=== PATIENT | male | born 1980 | race Caucasian/White ===

== ENCOUNTER 2024-02-12 22:34 | Emergency (ER) | payer OTHER, SELFPAY ==
--- NOTE | ~2024-02-12 | XR_ITS ---
Portable chest x-ray Comparison: None Clinical History: Fever, palpitations Findings: There is possible minimal central congestive change. No consolidation or pleural effusion. Cardiomediastinal silhouette is mildly prominent, possibly due to AP technique. Bones and soft tiss ues are unremarkable. Impression: Possible minimal central congestive change. Reviewed, dictated and finalized at location . Impression: Possible minimal central congestive change.
--- NOTE | ~2024-02-12 | CT_ITS ---
Clinical Indication: Shortness of breath CT Scan of the Chest with Contrast: Technique: Contiguous sections were acquired throughout the chest after intravenous administration of 100 cc of Omnipaque 350. Dose reduction technique was used on this scan by utilizing automated expos ure control and iterative reconstruction technique. The dose-length product (DLP) was 1261.56 mGy-cm. Findings: There is no evidence of any significant mediastinal, hilar or axillary lymphadenopathy. No definite l arge central pulmonary embolus seen, but evaluation is suboptimal due to timing of the contrast bolus . There is no evidence of aortic dissection or aneurysm. There is no evidence of pleural or pericardial effusion. 8 mm fissural nodule noted along the right minor fissure (axial image 50). Left lung clear. Images through the upper abdomen reveal no abnormalities. Impression: Limited evaluation for pulmonary embolus due to timing of the contrast bolus. No definite large centr al pulmonary embolus seen. 8 mm fissural nodule along right minor fissure. This is most likely benign. Consider follow-up exam i n 6 months. Reviewed, dictated and finalized at location . Impression: Limited evaluation for pulmonary embolus due to timing of the contrast bolus. N o definite large central pulmonary embolus seen. 8 mm fissural nodule along right minor fissure. This is most likely benign. Con candle cutter follow-up exam in 6 months.
--- NOTE | 2024-02-12 22:42 | ECG_ITS ---
Test Date: 2024-02-12 22:46:10 Measurements Intervals [place] Rate: 103 P: 11 CA: 164 QRS: 23 QRSD: 103 T: 57 QT: 328 QTc: 430 Interpretive Statements SINUS TACHYCARDIA WITH OCCASIONAL VENTRICULAR PREMATURE COMPLEXES NONSPECIFIC ST AND T-WAVE ABNORMALITY No previous ECG available for comparison Electronically Signed On 02-13-2024 09:41:48 CDT by Denisa Thompson M.D.
[2024-02-12 22:44] VITALS: BP 170/93; PULSE 102; RESP 14; TEMP 36.4; O2SAT 98
[2024-02-13 00:26] VITALS: BP 136/86; PULSE 95; RESP 20; TEMP 36.8; O2SAT 99
[2024-02-13 00:55] LABS: Basophils Percent Auto 0.4 % (0.2-1.2); Hematocrit 47.8 % (42.0-52.0); Hemoglobin 16.6 g/dL (14.0-18.0); Immature Granulocyte Absolute 0.11 K/mm3 (0.00-0.031); Immature Granulocyte Percent A 1.6 % (0-0.5); Lymphocytes Absolute Auto 0.97 K/mm3 (0.9-3.2); Lymphocytes Percent Auto 14.1 % (18.3-44.2); Mean Corpuscular HGB Conc 34.7 g/dl (32-36); Mean Corpuscular Hemoglobin 28.7 pg (26-34); Mean Corpuscular Volume 82.6 fl (80-100); Mean Platelet Volume 9.9 fl (7.4-10.4); Monocytes Absolute Auto 0.4 K/mm3 (0.1-0.6); Neutrophils Absolute Auto 5.3 K/mm3 (1.3-6.7); Neutrophils Percent Auto 77.9 % (45.5-73.1); Platelet Count Result 174 k/mm3 (150-375); Red Blood Count 5.79 M/mm3 (4.6-6.20); Red Cell Distribution Width 13.5 % (11.5-14.5); White Blood Count 6.9 K/mm3 (4.5-10.0)
[2024-02-13 01:01] LABS: Chloride 91 mmol/L (98-107)
[2024-02-13 01:09] LABS: Alanine Aminotransferase 58 U/L (6-50); Albumin Level 4.6 g/dL (3.5-5.1); Alkaline Phosphatase 87 U/L (38-126); Anion Gap 15 mmol/L (4-12); Aspartate Amino Transferase 39 U/L (17-59); Bilirubin,Total 1.1 mg/dL (0.2-1.3); Blood Urea Nitrogen 16 mg/dL (9-20); Calcium 9.2 mg/dL (8.4-10.2); Carbon Dioxide 25 mmol/L (22-30); Estimated CRCL calculation 193 ml/min; Estimated Glomerular Filt Rate > 60; Glucose 342 mg/dL (65-110); Potassium 3.9 mmol/L (3.4-5.0); Sodium 131 mmol/L (137-145)
[2024-02-13 01:15] LABS: Troponin I < 0.012 ng/mL (0.000-0.034)
[2024-02-13 01:49] LABS: INR 1.1; Prothrombin Time 14.1 Seconds (11.1-14.7)
[2024-02-13 02:34] VITALS: BP 127/96; PULSE 109; RESP 23; O2SAT 98
[2024-02-13 02:58] VITALS: PULSE 105; RESP 19; TEMP 38.3; O2SAT 97
[2024-02-13] MEDS: ACETAMINOPHEN 500 MG TABLET 1000 MG PO (03:11)
[2024-02-13] MEDS: SODIUM CHLORIDE 0.9% IV 1,000 ML 999 ML IV CONT (03:11)
[2024-02-13 03:12] LABS: Magnesium 1.8 mg/dL (1.6-2.3)
[2024-02-13 03:32] LABS: Add Urine Microscopic? YES; Appearance Urine Clear (Clear); Bacteria Urine None Seen /hpf; Bilirubin Urine Negative (Negative); Blood Urine Negative (Negative); Color Urine Yellow (Yellow); Glucose Urine UA 3+ mg/dL (Negative); Ketones Urine 3+ mg/dL (Negative); Leukocyte Esterase Ur Negative LEU/UL (Negative); Nitrate Urine Negative (Negative); Non Pathogenic Casts 0-2; Protein Urine 2+ mg/dL (Negative); RBC Urine 0-2 /hpf (0-2); Squamous Epithelial Cell Urine None Seen /hpf (Few); Urobilinogen Urine 0.2 mg/dL (<2.0); WBC Urine 0-5 /hpf (0-3)
[2024-02-13 04:04] VITALS: BP 156/92; PULSE 100; RESP 19; TEMP 37; O2SAT 95
[2024-02-13 04:06] LABS: Influenza A QL RT-PCR Negative (Negative); Influenza B QL RT-PCR Negative (Negative); RSV RNA, RT-PCR Negative (Negative); SARS-CoV-2 RNA PCR Negative (Negative)
--- NOTE | 2024-02-13 05:48 | ED_ITS ---
HPI - General Adult General Chief complaint: Arrhythmia/Palpitations Stated complaint: think I am hvaing heart attack Time Seen by Provider: 02/13/24 02:54 History of Present Illness HPI narrative: Patient's [age] old gentleman presents emergency department with chief complaint of palpitations. Patient reports that since afternoon he has felt like his heart is been pounding feels like it is beating strange the patient also reports he feels weak and tired patient states he has felt a little short of breath as well. Related Data Allergies Allergy/AdvReac Type Severity Reaction Status Date / Time No Known Allergies Allergy Verified 02/13/24 02:35 Review of Systems Review of Systems: A 10 system review of systems was completed on the patient and is negative except for what is stated in the HPI. Nursing and ancillary documentation was reviewed. Exam Narrative: GENERAL: Well-appearing, well-nourished, and in no acute distress. HEAD: Normocephalic, atraumatic. EYES: PERRLA and EOMI. ENT: Nares clear, no rhinorrhea or epistaxis. Mucous membranes moist. NECK: Supple. CHEST: Clear to auscultation. No respiratory distress. HEART: Regular rate and rhythm. No murmur heard. Normal peripheral pulses. ABDOMEN: Soft, nontender, nondistended, normal active bowel sounds. EXTREMITIES: Normal range of motion. No edema. SKIN: Warm, dry, no rash. NEURO: No focal deficits. Alert and oriented x3. PSYCH: Normal mood and affect. Course Vital Signs Vital signs: Vital Signs Temperature 36.4 C 02/12/24 22:44 Pulse Rate 102 H 02/12/24 22:44 Respiratory Rate 14 02/12/24 22:44 Blood Pressure 170/93 H 02/12/24 22:44 Pulse Oximetry 98 02/12/24 22:44 Oxygen Delivery Room Air 02/12/24 22:44 Temperature 37.0 C 02/13/24 04:04 Pulse Rate 100 02/13/24 04:04 Respiratory Rate 19 02/13/24 04:04 Blood Pressure 156/92 H 02/13/24 04:04 Pulse Oximetry 95 02/13/24 04:04 Oxygen Delivery Room Air 02/12/24 22:44 Medical Decision Making [facility] Narrative Medical decision making narrative: Differential diagnosis includes pneumonia, palpitations, viral illness, upper respiratory infection, pneumonia, pulmonary embolism Laboratory studies were obtained on the patient showed a normal CBC CMP showed a blood sugar of 342 the patient CO2 was 25 Troponin was negative urinalysis showed ketones and glucose COVID flu and RSV were negative Chest x-ray showed no focal infiltrate CTA chest showed no pulmonary embolism or had an infiltrate. Patient's blood sugar was treated with IV fluids patient will be started on metformin Vital Signs Vital Signs: Vital Signs Temperature 36.4 C 02/12/24 22:44 Pulse Rate 102 H 02/12/24 22:44 Respiratory Rate 14 02/12/24 22:44 Blood Pressure 170/93 H 02/12/24 22:44 Pulse Oximetry 98 02/12/24 22:44 Oxygen Delivery Room Air 02/12/24 22:44 Temperature 37.0 C 02/13/24 04:04 Pulse Rate 100 02/13/24 04:04 Respiratory Rate 19 02/13/24 04:04 Blood Pressure 156/92 H 02/13/24 04:04 Pulse Oximetry 95 02/13/24 04:04 Oxygen Delivery Room Air 02/12/24 22:44 Lab Data 02/13/24 00:44 02/13/24 00:44 Labs: Lab Results 02/13/24 02/13/24 02/13/24 Range/Units 00:44 03:13 03:24 WBC 6.9 (4.5-10.0) K/mm3 RBC 5.79 (4.6-6.20) M/mm3 Hgb 16.6 (14.0-18.0) g/dL Hct 47.8 (42.0-52.0) % MCV 82.6 (80-100) fl MCH 28.7 (26-34) pg MCHC 34.7 (32-36) g/dl RDW 13.5 (11.5-14.5) % Plt Count 174 (150-375) k/mm3 MPV 9.9 (7.4-10.4) fl Immature Gran % (Auto) 1.6 H (0-0.5) % Neut % (Auto) 77.9 H (45.5-73.1) % Lymph % (Auto) 14.1 L (18.3-44.2) % [place] % (Auto) 6.0 (2.6-8.5) % Eos % (Auto) 0.0 (0-4.4) % Baso % (Auto) 0.4 (0.2-1.2) % Lymph # (Auto) 0.97 (0.9-3.2) K/mm3 [place] # (Auto) 0.4 (0.1-0.6) K/mm3 Eos # (Auto) 0.0 (0-0.3) K/mm3 Baso # (Auto) 0.0 (0.0-0.1) K/mm3 Abs Immat Gran (auto) 0.11 H (0.00-0.031) K/mm3 Absolute Neuts (auto) 5.3 (1.3-6.7) K/mm3 Absolute Nucleated RBC 0.000 (0.0-0.012) K/mm3 Nucleated RBC % 0.0 (0.0-0.2) % PT 14.1 (11.1-14.7) Seconds INR 1.1 APTT 26.0 (22.3-36.8) Seconds Sodium 131 L (137-145) mmol/L Potassium 3.9 (3.4-5.0) mmol/L Chloride 91 L (98-107) mmol/L Carbon Dioxide 25 (22-30) mmol/L Anion Gap 15 H (4-12) mmol/L BUN 16 (9-20) mg/dL Creatinine 0.80 (0.7-1.3) mg/dL Estim Creat Clear Calc 193 ml/min Estimated GFR > 60 (59 - ) Glucose 342 H (65-110) mg/dL Calcium 9.2 (8.4-10.2) mg/dL Magnesium 1.8 (1.6-2.3) mg/dL Total Bilirubin 1.1 (0.2-1.3) mg/dL AST 39 (17-59) U/L ALT 58 H (6-50) U/L Alkaline Phosphatase 87 (38-126) U/L Troponin I < 0.012 (0.000-0.034) ng/mL Total Protein 8.0 (6.3-8.2) g/dL Albumin 4.6 (3.5-5.1) g/dL Urine Color Yellow (Yellow) Urine Appearance Clear (Clear) Urine pH 6.0 (5.0-9.0) Ur Specific [place] 1.040 H (1.001-1.035) Urine Protein 2+ H (Negative) mg/dL Urine Glucose (UA) 3+ H (Negative) mg/dL Urine Ketones 3+ H (Negative) mg/dL Ur Blood (Man) Negative (Negative) Urine Nitrate Negative (Negative) Urine Bilirubin Negative (Negative) Urine Urobilinogen 0.2 (<2.0) mg/dL Leukocyte Esterase Rfl Negative (Negative) AG/UL Urine RBC 0-2 (0-2) /hpf Urine WBC 0-5 (0-3) /hpf Ur Squamous Epith Cells None seen (Few) /hpf Urine Bacteria None seen /hpf Urine Casts 0-2 Influenza A (RT-PCR) Negative (Negative) Influenza B (RT-PCR) Negative (Negative) RSV (RT-PCR) Negative (Negative) SARS-CoV-2 RNA (RT-PCR) Negative (Negative) Discharge Plan Discharge Clinical Impression: Viral illness, Heart palpitations, Hyperglycemia Patient Disposition: Home, Self-Care Condition: Stable Instructions: Antibiotic Form, Heart Palpitations (ED), Viral Syndrome (ED), Diabetic Hyperglycemia (ED) Additional Instructions: It is recommended that you start checking her blood sugars at home and keep a daily log of this please follow-up with primary care we will start you on a medication to help bring her blood sugars down. Prescriptions: New metformin 500 mg tablet 500 mg PO BID Qty: 60 1RF Follow-up/Referrals: Christopher Nguyen MD [Physician] - PHYSICIAN,E LEARNING DESIGNER [Primary Care Provider] - Time of Disposition: 05:53
[2024-02-13 05:54] LABS: Glucose Point of Care 343 mg/dl (65-105)
== END 2024-02-13 06:02 | disposition home or self-care (01) ==
PROVIDERS: Emergency Provider Emergency Medicine
DX: B34.9 Viral infection, unspecified (principal); R00.2 Palpitations; R73.9 Hyperglycemia, unspecified; Z20.822 Contact with and (suspected) exposure to COVID-19
CPT/HCPCS: 36415; 71045; 71275; 80053; 81001; 82948; 83735; 84484; 85025; 85610; 85730; 87637; 93005; 96360; 99284; A9270; J7030; Q9967

== ENCOUNTER 2024-02-26 20:27 | Emergency (ER) | payer OTHER, SELFPAY ==
--- NOTE | ~2024-02-26 | CT_ITS ---
History: 2 weeks of lower back pain PROCEDURE: CT lumbar spine without intravenous contrast. COMPARISON: None TECHNIQUE: Multiple contiguous axial images of the lumbar spine were performed without the administration of int ravenous contrast. DLP: 1681 mGy-cm FINDINGS: Straightening of the normal lordotic curvature of the lumbar spine is identified, possibly muscular i n origin. No acute compression fractures are present. No soft tissue abnormality is noted. Degenerative disease is noted, with osteophyte formation, disc space narrowing, endplate changes and vacuum phenomena. Posterior osteophyte formation is also noted, most prominent at the level of L2/L3 with presence of a posterior osteophyte with extension into the canal markedly narrowing the sac to an anterior to post erior dimension of 6mm at this level. No soft tissue abnormality is identified at this level suggest acute or subacute trauma. No additional posterior osteophytes are present. Impression: Significant degenerative disease of the lumbar spine most significant at the level of L2/L3 with a po sterior osteophyte with extension into the canal markedly narrowing the sac to an anterior to posteri or dimension of 6 mm. Reviewed, dictated and finalized at location A. SEARCH EVALUATOR Impression: Significant degenerative disease of the lumbar spine most significant at the le anneliese of L2/L3 with a posterior osteophyte with extension into the canal markedly narrowing the sac to an anterior to posterior dimension of 6 mm.
[2024-02-26 20:32] VITALS: PULSE 113; RESP 20; TEMP 36.6; O2SAT 98
--- NOTE | 2024-02-26 20:48 | ED.BACK ---
HPI - Back Pain/Injury General Chief Complaint: Back Pain/Injury Stated Complaint: pinched nerve in the back Time Seen by Provider: 02/26/24 20:30 History of Present Illness HPI Narrative: 43-year-old male with history of type 2 diabetes presents to emergency department for back pain for 6 days. Patient states a few days prior to his back pain he was in the ER for palpitations. States he felt a pinch in his back while laying on the hospital bed for several hours. His pain improved until a few days later in began having pain again. He states it is located in his lower back and radiates to his right side. He reports numbness to the low back. Denies saddle anesthesia, bowel or bladder incontinence, urinary retention, leg weakness, numbness or tingling to the legs, abdominal pain, fever. Denies IV drug use, use of immuno compromising drugs, history of cancer. He is taking metformin for his diabetes but does not have a PCP. Related Data Allergies Allergy/AdvReac Type Severity Reaction Status Date / Time No Known Allergies Allergy Verified 02/26/24 20:36 Review of Systems Review of Systems: All systems reviewed & are unremarkable except as noted in HPI and below Exam Narrative: GENERAL: Well-appearing, well-nourished, and in no acute distress. HEAD: Normocephalic, atraumatic. EYES: PERRLA and EOMI. ENT: Nares clear, no rhinorrhea or epistaxis. Mucous membranes moist. NECK: Supple. BACK: No thoracic spinous tenderness, step-offs or deformities. Minimal tenderness to the lumbar spine and right paraspinous muscles no crepitus, step-offs or deformities. No overlying skin changes. Negative straight leg raise bilaterally. CHEST: Clear to auscultation. No respiratory distress. HEART: Regular rate and rhythm. No murmur heard. Normal peripheral pulses. ABDOMEN: Soft, nontender, nondistended, normal active bowel sounds. EXTREMITIES: Normal range of motion. No edema. Bilateral lower extremity strength 5/5. Sensation intact throughout. No saddle anesthesia. SKIN: Warm, dry, no rash. NEURO: No focal deficits. Alert and oriented x3. Ambulating with a steady gait. Course Vital Signs Vital signs: Vital Signs Temperature 98 F 02/26/24 20:32 Pulse Rate 113 H 02/26/24 20:32 Respiratory Rate 20 02/26/24 20:32 Pulse Oximetry 98 02/26/24 20:32 Oxygen Delivery Room Air 02/26/24 20:32 Temperature 98 F 02/26/24 20:32 Pulse Rate 101 H 02/26/24 22:26 Respiratory Rate 20 02/26/24 22:26 Blood Pressure 151/90 H 02/26/24 22:26 Pulse Oximetry 95 02/26/24 22:26 Oxygen Delivery Room Air 02/26/24 20:32 MDM - Back Pain/Injury MDM Narrative Medical decision making narrative: 43-year-old male with history of type 2 diabetes presents to emergency department for low back pain for 6 days. Vitals with tachycardia 113 which has since resolved. He is afebrile nontoxic appearing. Exam significant for the above. No significant neurologic deficits on exam. No significant red flag back pain signs, however given he has no prior imaging in the past will obtain CT lumbar spine today. CT lumbar spine shows significant degenerative disease of the lumbar spine was significant the level of L2-L3 with posterior osteophyte. There is extension into the canal markedly narrowing sac to and anterior to posterior dimension of 6 mm. Patient was updated on workup. He received Flexeril, lidocaine patch, Toradol and IM Decadron. Will start prednisone, Flexeril and lidocaine patches interval follow-up closely with PCP and neurosurgery. Strict ED return precautions provided. He is agreeable to plan verbalized understanding. Discharged in stable condition. Discharge Plan Discharge Clinical Impression: Degenerative disc disease, lumbar Qualifiers: Disc-related pain type: discogenic back pain only Qualified Code(s): M51.360 - Other intervertebral disc degeneration, lumbar region with discogenic back pain only Patient Disposition: Home, Self-Care Condition: Stable Instructions: Antibiotic Form, Acute Low Back Pain (ED), Lower Back Exercises (ED) Additional Instructions: Your evaluated in the emergency department for low back pain. Refer found to have a large bone spur in her back that is a heating on your spinal canal which may be the cause of her symptoms. Please take the steroids, muscle relaxers and lidocaine patches as directed. He can also take ibuprofen or Aleve [id number] as directed on the bottle. Please follow-up closely with your primary care provider in the neurosurgeon I have referred you to. Return to the emergency department if you develop a fever, significant worsening pain, your unable to move your legs, you develop numbness in your groin, loss of bowel or bladder control or retention, or other concerning symptoms. Prescriptions: New methylprednisolone [Medrol (Altaf)] 4 mg tablets,dose pack See Rx Instructions PO .COMPLEX Qty: 21 0RF Rx Instructions: orally per package directions cyclobenzaprine 10 mg tablet 10 mg PO TID PRN (Reason: muscle spasm) Qty: 14 0RF lidocaine 5 % adhesive patch,medicated 1 patch topical DAILY Qty: 15 0RF Rx Instructions: leave on most painful area for up to 12 hrs. do not use more than 1 patch in a 24-hour period. No Action metformin 500 mg tablet 500 mg PO BID Qty: 60 1RF Follow-up/Referrals: Roberto Meadows MD [Physician] - 1 Day PHYSICIAN,WOOD BORING MACHINE OPERATOR [Primary Care Provider] - Elliot Knight MD [Physician] - 1 Day
[2024-02-26] MEDS: LIDOCAINE 5% PATCH 1 PATCH TRANSDERM (20:51)
[2024-02-26] MEDS: CYCLOBENZAPRINE HCL 10 MG TABLET PO (20:51)
[2024-02-26 22:26] VITALS: BP 151/90; PULSE 101; RESP 20; O2SAT 95
[2024-02-27] MEDS: KETOROLAC 30 MG/ML VIAL (*BKC) IM (00:19)
[2024-02-27] MEDS: dexAMETHasone SOD PHOS INJ 10 MG/ML 1 ML VIAL IM (00:22)
[2024-02-27 00:35] VITALS: BP 148/90; PULSE 99; RESP 13; O2SAT 100
[2024-02-27 00:38] VITALS: BP 148/90; PULSE 99; RESP 13; O2SAT 100
== END 2024-02-27 00:41 | disposition home or self-care (01) ==
PROVIDERS: Emergency Provider Physician Assistant
DX: M51.360 Other intervertebral disc degeneration, lumbar region with discogenic back pain only (principal)
CPT/HCPCS: 72131; 96372; 99284; A9270; J1100; J1885

== ENCOUNTER 2024-02-28 06:45 | Emergency (ER) | payer OTHER, SELFPAY ==
[2024-02-28 07:23] VITALS: BP 155/98; PULSE 95; RESP 18; TEMP 36.2; O2SAT 98
--- NOTE | 2024-02-28 07:46 | ED_ITS ---
HPI - General Adult General Chief complaint: Back Pain/Injury Stated complaint: Back pain Time Seen by Provider: 02/28/24 07:00 History of Present Illness HPI narrative: 43 old male presenting to the emergency department for evaluation of persistent back pain. Patient was evaluated in the emergency department few days ago and did have a CT scan showing an osteophyte involving the canal of the lumbar spine. Patient was discharged home was methylprednisolone, lidocaine patch, and a muscle relaxer. Patient states that the lidocaine patch did help his pain low bed and he did not start taking the methylprednisolone until today. Patient states that his pain is poorly controlled. Patient denies any change in numbness or weakness. Patient denies any change in bowel or bladder habits. Related Data Allergies Allergy/AdvReac Type Severity Reaction Status Date / Time No Known Allergies Allergy Verified 02/28/24 06:46 Review of Systems Review of Systems: All systems reviewed & are unremarkable except as noted in HPI and below Exam Narrative: APPEARANCE: Uncomfortable appearing HEAD: normocephalic, atraumatic. EYES: PERRLA/EOMI, conjunctivae clear. NOSE: Normal no drainage EARS:TMS clear with good light reflex. THROAT: Pharynx clear, no exudate. NECK: Supple. No adenopathy, no masses. RESPIRATORY: Airway patent, respirations nonlabored. Clear to auscultation bilaterally, no rales, rhonchi, wheezing. CARDIOVASCULAR: Regular rate and rhythm without murmurs rubs or gallops. ABDOMINAL: Soft, nontender, nondistended, normal bowel sounds MUSCULOSKELETAL: Moves all extremities. Strength/ROM intact, No edema, No calf tenderness. NEURO: Alert. Cranial nerves II through XII intact. Good gait. Good coordination SKIN: Warm, dry. Normal Color Course Vital Signs Vital signs: Vital Signs Temperature 97.1 F L 02/28/24 07:23 Pulse Rate 95 02/28/24 07:23 Respiratory Rate 18 02/28/24 07:23 Blood Pressure 155/98 H 02/28/24 07:23 Pulse Oximetry 98 02/28/24 07:23 Temperature 97.7 F 02/28/24 10:29 Pulse Rate 96 02/28/24 10:29 Respiratory Rate 20 02/28/24 10:29 Blood Pressure 160/73 H 02/28/24 10:29 Pulse Oximetry 100 02/28/24 10:29 Medical Decision Making [facility] Narrative Medical decision making narrative: 43 old male presents emergency department for evaluation for persistent back pain. Patient was previously evaluated emergency department had a CT imaging showing he does have an osteophyte affecting the lumbar spine. Patient does have follow-up scheduled with neurosurgery. Patient's primary complaint was uncontrolled pain. Patient was not discharged home with pain medications during his initial visits. Patient did feel improved with treatment of IV pain meds in the emergency department. Patient was discharged home with p.o. pain meds. Differential Diagnosis Differential Diagnosis: Back fracture, cauda equina, back spasm, sciatica Vital Signs Vital Signs: Vital Signs Temperature 97.1 F L 02/28/24 07:23 Pulse Rate 95 02/28/24 07:23 Respiratory Rate 18 02/28/24 07:23 Blood Pressure 155/98 H 02/28/24 07:23 Pulse Oximetry 98 02/28/24 07:23 Temperature 97.7 F 02/28/24 10:29 Pulse Rate 96 02/28/24 10:29 Respiratory Rate 20 02/28/24 10:29 Blood Pressure 160/73 H 02/28/24 10:29 Pulse Oximetry 100 02/28/24 10:29 Discharge Plan Discharge Clinical Impression: Lumbar radiculopathy Patient Disposition: Home, Self-Care Condition: Stable Instructions: Antibiotic Form Additional Instructions: Continue your methylprednisolone as directed. Flexeril for muscle spasm. [place] for pain control. Have close follow-up with Neurosurgery. If you have any worsening symptoms then please call or return to the emergency department. Prescriptions: New hydrocodone-acetaminophen 5-325 mg tablet 1 tablet PO Q8H PRN (Reason: pain) Qty: 20 0RF No Action metformin 500 mg tablet 500 mg PO BID Qty: 60 1RF methylprednisolone [Medrol (Altaf)] 4 mg tablets,dose pack See Rx Instructions PO .COMPLEX Qty: 21 0RF Rx Instructions: orally per package directions cyclobenzaprine 10 mg tablet 10 mg PO TID PRN (Reason: muscle spasm) Qty: 14 0RF lidocaine 5 % adhesive patch,medicated 1 patch topical DAILY Qty: 15 0RF Rx Instructions: leave on most painful area for up to 12 hrs. do not use more than 1 patch in a 24-hour period. Follow-up/Referrals: PHYSICIAN,PARACHUTE LINE TIER [Non-Staff] - Stand Alone Forms: Work/School Release IP
[2024-02-28] MEDS: CYCLOBENZAPRINE HCL 10 MG TABLET PO (08:25)
[2024-02-28] MEDS: HYDROmorphone HCL INJ (*CRX) 1 MG/ML SYR IV PUSH (08:25)
[2024-02-28] MEDS: HYDROcodone/acetaminophen (*CRX) 5-325 MG TABLET 1 TAB PO (09:38)
[2024-02-28] MEDS: HYDROmorphone HCL INJ (*CRX) 1 MG/ML SYR 0.5 MG IV PUSH ×2 (09:39→10:18)
[2024-02-28 09:41] VITALS: BP 161/98; PULSE 100; RESP 20; O2SAT 97
[2024-02-28 10:29] VITALS: BP 160/73; PULSE 96; RESP 20; TEMP 36.5; O2SAT 100
== END 2024-02-28 10:31 | disposition home or self-care (01) ==
PROVIDERS: Emergency Provider Emergency Medicine
DX: M54.16 Radiculopathy, lumbar region (principal)
CPT/HCPCS: 96374; 96376; 99284; A9270; J1171